=== PATIENT | female | born 2000 | race African-American/Black ===

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

== ENCOUNTER 2021-02-19 22:23 | Emergency (ER) | payer BC ==
[2021-02-19] MEDS ORDERED: Acetaminophen 500 MG Tab PO ONE (22:37)
--- NOTE | 2021-02-19 22:41 | EDM.PDOC ---
ED HPI GENERAL MEDICAL PROBLEM - General Chief Complaint: Abdominal Pain Stated Complaint: ABDOMINAL PAIN Time Seen by Provider: 02/19/21 22:30 Source of Information: Reports: Patient History Limitations: Reports: No Limitations - History of Present Illness INITIAL COMMENTS - FREE TEXT/NARRATIVE: Patient is a 20-year-old female who presents today for lower abdominal pain. Patient dates that she took a test and is now . Patient that she was at work today on the toilet urinating when she finished she had intense lower pain and could not stand. Patient denies any vaginal bleeding and or discharge. Patient denies any vomiting or diarrhea. Abdomen Pain Score (Numeric/FACES): 10 - Related Data Allergies Allergy/AdvReac Type Severity Reaction Status Date / Time shellfish derived Allergy Hives Verified 02/19/21 22:31 Home Meds: Home Meds No122/Iron/Folic Acid [ Multi Tablet] 1 each PO DAILY 02/19/21 [History] Past Medical History - Past Health History Medical/Surgical History: Denies Medical/Surgical History - Infectious Disease History Infectious Disease History: Reports: None Social & Family History - Family History Family Medical History: No Pertinent Family History ED ROS GENERAL - Review of Systems Review Of Systems: See Below Constitutional: Reports: No Symptoms HEENT: Reports: No Symptoms Respiratory: Reports: No Symptoms Cardiovascular: Reports: No Symptoms Endocrine: Reports: No Symptoms GI/Abdominal: Reports: Abdominal Pain : Reports: No Symptoms Musculoskeletal: Reports: No Symptoms Skin: Reports: No Symptoms Neurological: Reports: No Symptoms Psychiatric: Reports: No Symptoms Hematologic/Lymphatic: Reports: No Symptoms Immunologic: Reports: No Symptoms ED EXAM - Physical Exam Exam: See Below Exam Limited By: No Limitations General Appearance: Alert, WD/WN, No Apparent Distress Respiratory/Chest: No Respiratory Distress, Lungs Clear Cardiovascular: Normal Peripheral Pulses, Regular Rate, Rhythm GI/Abdominal Exam: Normal Bowel Sounds, Soft, Tender (suprapubic) Extremities: Normal Inspection Neurological: Alert, Oriented Course - Vital Signs Last Recorded V/S: Last Vital Signs Temp 98 F 02/19/21 22:25 Pulse 91 02/19/21 23:39 Resp 16 02/19/21 23:39 BP 99/60 02/19/21 23:39 Pulse Ox 100 02/19/21 23:39 - Orders/Labs/Meds Labs: Laboratory Tests 02/19/21 02/19/21 02/19/21 Range/Units 22:28 22:28 23:58 WBC 12.26 H (4.0-11.0) K/uL RBC 4.20 L (4.30-5.90) M/uL Hgb 11.4 L (12.0-16.0) g/dL Hct 34.8 L (36.0-46.0) % MCV 82.9 (80.0-98.0) fL MCH 27.1 (27.0-32.0) pg MCHC 32.8 (31.0-37.0) g/dL RDW Std Deviation 46.1 (28.0-62.0) fl RDW Coeff of Baldev 15 (11.0-15.0) % Plt Count 361 (150-400) K/uL MPV 10.60 (7.40-12.00) fL Neut % (Auto) 40.3 L (48.0-80.0) % Lymph % (Auto) 48.9 H (16.0-40.0) % [place] % (Auto) 6.3 (0.0-15.0) % Eos % (Auto) 4.2 (0.0-7.0) % Baso % (Auto) 0.3 (0.0-1.5) % Neut # (Auto) 4.9 (1.4-5.7) K/uL Lymph # (Auto) 6.0 H (0.6-2.4) K/uL [place] # (Auto) 0.8 (0.0-0.8) K/uL Eos # (Auto) 0.5 (0.0-0.7) K/uL Baso # (Auto) 0.0 (0.0-0.1) K/uL Nucleated RBC % 0.0 /100WBC Nucleated RBCs # 0 K/uL Sodium 138 (136-145) mmol/L Potassium 3.5 (3.5-5.1) mmol/L Chloride 103 (98-107) mmol/L Carbon Dioxide 23.4 (21.0-32.0) mmol/L BUN 13 (7.0-18.0) mg/dL Creatinine 0.8 (0.6-1.0) mg/dL Est Cr Clr Drug Dosing 102.05 mL/min Estimated GFR (MDRD) > 60.0 ml/min Glucose 112 H (74-106) mg/dL Calcium 8.9 (8.5-10.1) mg/dL Total Bilirubin 0.2 (0.2-1.0) mg/dL AST 18 (15-37) IU/L ALT 20 (14-63) IU/L Alkaline Phosphatase 88 (46-116) U/L Total Protein 8.0 (6.4-8.2) g/dL Albumin 4.0 (3.4-5.0) g/dL Globulin 4.0 (2.6-4.0) g/dL Albumin/Globulin Ratio 1.0 (0.9-1.6) Lipase 78 (73-393) U/L HCG, Quant 8267.0 mIU/mL Urine Color YELLOW Urine Appearance CLEAR Urine pH 7.5 (5.0-8.0) Ur Specific [place] 1.020 (1.001-1.035) Urine Protein NEGATIVE (NEGATIVE) mg/dL Urine Glucose (UA) NEGATIVE (NEGATIVE) mg/dL Urine Ketones NEGATIVE (NEGATIVE) mg/dL Urine Occult Blood NEGATIVE (NEGATIVE) Urine Nitrite NEGATIVE (NEGATIVE) Urine Bilirubin NEGATIVE (NEGATIVE) Urine Urobilinogen 1.0 (<2.0) EU/dL Ur Leukocyte Esterase NEGATIVE (NEGATIVE) Meds: Medications Discontinued Medications Generic Name Dose Route Start Last Admin Trade Name Nicq PRN Reason Stop Dose Admin Acetaminophen 650 mg 02/19/21 22:37 02/19/21 22:49 Acetaminophen 500 Mg Tab PO 02/19/21 22:38 Not Given ONETIME ONE Acetaminophen 650 mg 02/19/21 22:44 02/19/21 22:50 Acetaminophen 325 Mg Tab PO 02/19/21 22:45 650 mg NOW ONE Administration - Re-Assessments/Exams Free Text/Narrative Re-Assessment/Exam: 02/20/21 00:30 Patient's ultrasound shows IUP but still early and no cardiac motion shown po ssibly due to early but patient made aware that she will need a repeat ultrasound she already has one scheduled for February 24. Patient again has no vaginal bleeding discharge was given strict return precautions. Patient pain is improved. Departure - Departure Time of Disposition: 00:31 Disposition: Home, Self-Care 01 Condition: Good Clinical Impression: related abdominal pain of lower quadrant, antepartum - Discharge Information *PRESCRIPTION DRUG MONITORING PROGRAM REVIEWED*: Not Applicable *COPY OF PRESCRIPTION DRUG MONITORING REPORT IN PATIENT MORGAN: Not Applicable Instructions: Abdominal Pain During , [id number] Referrals: PCP,None [Primary Care Provider] - Forms: ED Department Discharge Additional Instructions: The following information is given to patients seen in the emergency department who are being discharged to home. This information is to outline your options for follow-up care. We provide all patients seen in our emergency department with a follow-up referral. The need for follow-up, as well as the timing and circumstances, are variable depending upon the specifics of your emergency department visit. If you don't have a primary care physician on staff, we will provide you with a referral. We always advise you to contact your personal physician following an emergency department visit to inform them of the circumstance of the visit and for follow-up with them and/or the need for any referrals to a consulting specialist. The emergency department will also refer you to a specialist when appropriate. This referral assures that you have the opportunity for follow-up care with a specialist. All of these measure are taken in an effort to provide you with optimal care, which includes your follow-up. Under all circumstances we always encourage you to contact your private physician who remains a resource for coordinating your care. When calling for follow-up care, please make the office aware that this follow-up is from your recent emergency room visit. If for any reason you are refused follow-up, please contact the [facility] Emergency Department at and asked to speak to the emergency department charge nurse. Please follow up with your primary care physician. If you do not have a primary care physician, see below: [facility]'s [facility] [address] [place] [id number] [facility]'s [facility] [address] [place] [id number] You are seen today for lower abdominal pain. We performed ultrasound that shows that the baby is in the right spot. Again we told you that there was no heartbeat at this moment which could possibly be due to you being early in your however we still want you to have the ultrasound in the next 7 days and also have your beta hCG redrawn. You have an appointment in the next few days and can have this done at that time. If you have any increase pasquale pain vaginal bleeding or discharge please return to the ED immediately or follow-up with your [facility]. Sepsis Event Note (ED) - Evaluation Sepsis Screening Result: No Definite Risk - Focused Exam Vital Signs: Vital Signs Temp Pulse Resp BP Pulse Ox 02/19/21 23:39 91 16 99/60 100 02/19/21 22:25 98 F 103 H 18 121/77 97 - Assessment/Plan Plan: Patient is a 20-year-old female who presents today for lower abdominal pain. Patient had a recent positive test. Will obtain labs ultrasound and reassess patient.
[2021-02-19] MEDS ORDERED: Acetaminophen 325 MG Tab PO ONE (22:44)
[2021-02-19 23:31] LABS: BLOOD UREA NITROGEN,BUN 13 mg/dL (7.0-18.0); CARBON DIOXIDE,CO2 23.4 mmol/L (21.0-32.0); CHLORIDE,CL 103 mmol/L (98-107); GLUCOSE RANDOM 112 mg/dL (74-106); LIPASE 78 U/L (73-393); POTASSIUM,K 3.5 mmol/L (3.5-5.1); SODIUM,NA 138 mmol/L (136-145)
--- NOTE | 2021-02-20 00:02 | US ---
INDICATION: , low pelvic pain TECHNIQUE: Ultrasound OB pelvis transvaginal. Real-time he-scale imaging of the pelvis was performed. COMPARISON: None FINDINGS: Sonographic imaging demonstrates a single living intrauterine gestation. Definite cardiac activity is not seen on M-mode imaging although cine loops may show cardiac activity. The embryo`s crown rump length measurement of 0.2 cm corresponds to a gestational age of 5 weeks 6 days. There is a normal appearing yolk sac. There are no gross abnormalities noted within the embryo at this early state of development. The placenta has not yet developed. There is no sign of perigestational hemorrhage. Maternal left ovary measures 3.5 x 1.4 x 2.4 centimeters. Maternal right ovary measures 4.0 x 2.8 x 4.6 centimeters. Likely right ovarian corpus luteum measuring 2.5 centimeters. Collapsing 2.6 centimeter cyst with small free fluid. IMPRESSION: 1. Single intrauterine gestation corresponding to 5 weeks 6 days. Cardiac activity is not seen on M-mode imaging although there may be some faint motion on cine loops. This is considered a of indeterminate viability. Suggest serial quantitative beta HCG and follow-up ultrasound in 7-10 days to reassess cardiac activity. 2. Maternal right ovarian corpus luteum as well as a collapsing maternal right ovarian cyst with small free fluid. Dictated by Wily Day MD @ 02/20/2021 12:01:[address] Wily Day @ Feb 20 2021 12:01AM
== END 2021-02-20 00:45 | disposition home or self-care (01) ==
LOC: MW.ED 22:23
DX: O26.891 Other specified pregnancy related conditions, first trimester (principal); R10.30 Lower abdominal pain, unspecified; Z91.013 Allergy to seafood; Z3A.01 Less than 8 weeks gestation of pregnancy
CPT/HCPCS: 36415; 76801; 80053; 81003; 83690; 84702; 85025; 99284; A9270

== ENCOUNTER 2021-03-15 10:47 | Emergency (ER) | payer BC ==
--- NOTE | 2021-03-15 11:15 | EDM.PDOC ---
ED HPI GENERAL MEDICAL PROBLEM - General Chief Complaint: GRAIN MANAGER Problem Stated Complaint: CANT KEEP ANYTHING DOWN Time Seen by Provider: 03/15/21 11:05 Source of Information: Reports: Patient History Limitations: Reports: No Limitations - History of Present Illness INITIAL COMMENTS - FREE TEXT/NARRATIVE: HISTORY AND PHYSICAL: History of present illness: The patient is a 20-year-old female who presents to the emergency room at 8 weeks 5 days with complaints of vomiting everything she eats which started yesterday. The patient reports that she had started with morning sickness about 2 weeks ago and went to her GRAIN MANAGER for a work-up. She was found to have anemia and started on an iron supplement. She was also given vitamin B6 and Unisom along with Zofran for nausea and vomiting. The patient states that she ran out of Zofran about 3 days ago and is unsure if this is why she started vomiting. Patient denies any fever, chills, headache, change in vision, syncope or near syncope. Denies any chest pain, back pain, shortness of breath or cough. Denies any abdominal pain, diarrhea, constipation or dysuria. Has not noted any blood in urine or stool. Review of systems: As per history of present illness and below otherwise all systems reviewed and negative. Past medical history: As per history of present illness and as reviewed below otherwise noncontri butory. Surgical history: As per history of present illness and as reviewed below otherwise noncontributory. Social history: See social history for further information Family history: As per history of present illness and as reviewed below otherwise noncontributory. Physical exam: General: Well developed and well nourished. Alert and orientated x 3. Nontoxic in appearance and in no acute distress. Vital signs are stable and have been reviewed by me. Nursing notes were reviewed. HEENT: Atraumatic, normocephalic, pupils equal and reactive bilaterally, negative for conjunctival pallor or scleral icterus, mucous membranes moist, TMs normal bilaterally, throat clear, neck supple, nontender, trachea midline. No drooling or trismus noted. No meningeal signs. No hot potato voice noted. Lungs: Clear to auscultation bilaterally. No wheezes, rales, or rhonchi. Chest nontender. Normal work of breathing, no accessory muscles used. Heart: S1S2, regular rate and rhythm without overt murmur, gallops, or rubs. No JVD. No peripheral edema Abdomen: Soft, nondistended, nontender. Normoactive bowel sounds. Negative for masses or costovertebral tenderness.. Skin: Intact, warm, dry. No lesions or rashes noted. Hematologic: No petechiae or purpra. Mucosa appropriate color and normal nail bed color and refill. Extremities: Atraumatic, moves all extremities per self without difficulty or deficits, negative for cords or calf pain. Neurovascular unremarkable. Neuro: Awake, alert, oriented. Cranial nerves II through XII unremarkable. Cerebellum unremarkable. Motor and sensory unremarkable throughout. Exam nonfocal. Psychiatric: Mood and affect are appropriate. Normal thought process. Answering questions appropriately. Notes: *This patient was seen and evaluated during the 2019 SARS-CoV-2 novel coronavirus pandemic period. Community viral transmission is ongoing at time of this encounter and the emergency department is operating under pandemic response procedures. As stated above the patient is a 20-year-old female who presents with vomiting associated with early . She states that she is hungry but I unable to keep food down and has run out of her Zofran. She also states that she does not take her vitamin B6 and her Unisom in conjunction but rather apart such as taking her Unisom at bedtime. I will do a general work-up including blood work, urine, and give her IV fluids with IV Zofran. The patient is agreeable with this plan. The patient was able to tolerate eating a sandwich after receiving the Zofran and IV fluids. She will get her refill of her Zofran. And she is agreeable for discharge. I have talked with the patient about today's findings, in addition to providing specific details for plan of care. Reassessment at the time of disposition demo nstrates that the patient is in no acute distress. The patient is stable for discharge, counseling was provided and we discussed in great detail signs and symptoms that would prompt them to return to the Emergency Department. Medication, follow up and supportive care measures were reviewed and discussed. Voices understanding and is agreeable to plan of care. Denies any further questions or concerns at this time. Diagnostics: CBC, CMP, UA Therapeutics: IV fluids, Zofran Impression: Nausea and vomiting Plan: 1. You were evaluated today on an emergent basis. Your complaints of vomiting during were evaluated with blood work and a urinalysis. You continue to be mildly anemic so continue your iron supplement. Of your labs were normal. You do not have a urinary tract infection. Continue to take your Zofran. Make sure to go to [facility] and get your refill. Start with easier foods that digest well. Eat small frequent meals as opposed to large greasy meals. If you have any pro blems please return to the emergency room. 2. You can alternate Tylenol and ibuprofen as needed for pain and fever management. 3. We encourage you to follow up with your primary care provider and/or recommended specialist in the next few days for re-evaluation and further care/management. 4. If your symptoms should worsen, new symptoms develop or any of the signs and symptoms we discussed should arise please return to the emergency room or call 911 (if needed). Definitive disposition and diagnosis as appropriate pending reevaluation and review of above. Abdominal Pain Score (Numeric/FACES): 4 - Related Data Allergies Allergy/AdvReac Type Severity Reaction Status Date / Time shellfish derived Allergy Hives Verified 03/15/21 11:19 Home Meds: Home Meds No122/Iron/Folic Acid [ Multi Tablet] 1 each PO DAILY 02/19/21 [History] Ondansetron [Zofran ODT] 4 mg PO ASDIRECTED 03/15/21 [History] Past Medical History - Past Health History Medical/Surgical History: Denies Medical/Surgical History HEENT History: Reports: None Cardiovascular History: Reports: None Respiratory History: Reports: None Gastrointestinal History: Reports: None Genitourinary History: Reports: None GRAIN MANAGER History: Reports: , Spontaneous , Therapeutic Musculoskeletal History: Reports: None Neurological History: Reports: None Psychiatric History: Reports: None Endocrine/Metabolic History: Reports: None Insulin Pump Model and Behavioral Pediatrician: None Hematologic History: Reports: None Immunologic History: Reports: None Oncologic (Cancer) History: Reports: None Dermatologic History: Reports: None - Infectious Disease History Infectious Disease History: Reports: None - Past Surgical History Head Surgeries/Procedures: Reports: None Social & Family History - Family History Family Medical History: No Pertinent Family History - Caffeine Use Caffeine Use: Reports: None ED ROS GENERAL - Review of Systems Review Of Systems: Comprehensive ROS is negative, except as noted in HPI. ED EXAM - Physical Exam Exam: See Below (See dictation) Course - Vital Signs Last Recorded V/S: Last Vital Signs Temp 97.8 F 03/15/21 12:44 Pulse 89 03/15/21 13:40 Resp 16 03/15/21 13:40 BP 92/47 L 03/15/21 13:40 Pulse Ox 100 03/15/21 13:40 - Orders/Labs/Meds Orders: Active Orders 24 hr Category Date Time Status Saline Lock Insert [OM.PC] Stat Oth 03/15/21 11:28 Ordered Labs: Laboratory Tests 03/15/21 03/15/21 03/15/21 Range/Units 11:32 11:32 11:32 WBC 9.58 (4.0-11.0) K/uL RBC 4.01 L (4.30-5.90) M/uL Hgb 11.1 L (12.0-16.0) g/dL Hct 33.5 L (36.0-46.0) % MCV 83.5 (80.0-98.0) fL MCH 27.7 (27.0-32.0) pg MCHC 33.1 (31.0-37.0) g/dL RDW Std Deviation 47.6 (28.0-62.0) fl RDW Coeff of Baldev 15 (11.0-15.0) % Plt Count 298 (150-400) K/uL MPV 10.50 (7.40-12.00) fL Neut % (Auto) 60.4 (48.0-80.0) % Lymph % (Auto) 28.5 (16.0-40.0) % [place] % (Auto) 6.4 (0.0-15.0) % Eos % (Auto) 4.5 (0.0-7.0) % Baso % (Auto) 0.2 (0.0-1.5) % Neut # (Auto) 5.8 H (1.4-5.7) K/uL Lymph # (Auto) 2.7 H (0.6-2.4) K/uL Hays # (Auto) 0.6 (0.0-0.8) K/uL Eos # (Auto) 0.4 (0.0-0.7) K/uL Baso # (Auto) 0.0 (0.0-0.1) K/uL Nucleated RBC % 0.0 /100WBC Nucleated RBCs # 0 K/uL Sodium 138 (136-145) mmol/L Potassium 3.5 (3.5-5.1) mmol/L Chloride 101 (98-107) mmol/L Carbon Dioxide 25.7 (21.0-32.0) mmol/L BUN 5 L (7.0-18.0) mg/dL Creatinine 0.7 (0.6-1.0) mg/dL Est Cr Clr Drug Dosing 105.52 mL/min Estimated GFR (MDRD) > 60.0 ml/min Glucose 79 (74-106) mg/dL Calcium 8.4 L (8.5-10.1) mg/dL Total Bilirubin 0.3 (0.2-1.0) mg/dL AST 15 (15-37) IU/L ALT 13 L (14-63) IU/L Alkaline Phosphatase 60 (46-116) U/L Total Protein 7.0 (6.4-8.2) g/dL Albumin 3.4 (3.4-5.0) g/dL Globulin 3.6 (2.6-4.0) g/dL Albumin/Globulin Ratio 0.9 (0.9-1.6) Urine Color YELLOW Urine Appearance CLEAR Urine pH 6.5 (5.0-8.0) Ur Specific [place] 1.025 (1.001-1.035) Urine Protein NEGATIVE (NEGATIVE) mg/dL Urine Glucose (UA) NEGATIVE (NEGATIVE) mg/dL Urine Ketones NEGATIVE (NEGATIVE) mg/dL Urine Occult Blood NEGATIVE (NEGATIVE) Urine Nitrite NEGATIVE (NEGATIVE) Urine Bilirubin NEGATIVE (NEGATIVE) Urine Urobilinogen 0.2 (<2.0) EU/dL Ur Leukocyte Esterase NEGATIVE (NEGATIVE) Meds: Medications Discontinued Medications Generic Name Dose Route Start Last Admin Trade Name Freq PRN Reason Stop Dose Admin Sodium Chloride 1,000 mls @ 999 mls/hr 03/15/21 11:28 03/15/21 11:43 Normal Saline IV 03/15/21 12:28 999 mls/hr .BOLUS ONE Administration Ondansetron HCl 4 mg 03/15/21 11:29 03/15/21 11:43 Ondansetron 4 Mg/2 Ml Sdv IVPUSH 03/15/21 11:30 4 mg ONETIME ONE Administration Sodium Chloride 10 ml 03/15/21 11:28 03/15/21 11:43 Sodium Chloride 0.9% 10 Ml Syringe FLUSH 10 ml ASDIRECTED PRN Administration Keep Vein Open Sodium Chloride 2.5 ml 03/15/21 11:28 03/15/21 11:43 Sodium Chloride 0.9% 2.5 Ml Syringe FLUSH 2.5 ml ASDIRECTED PRN Administration Keep Vein Open Departure - Departure Time of Disposition: 13:07 Disposition: Home, Self-Care 01 Condition: Good Clinical Impression: Nausea & vomiting Qualifiers: Vomiting type: unspecified Vomiting Intractability: unspecified Qualified Code(s): R11.2 - Nausea with vomiting, unspecified - Discharge Information *PRESCRIPTION DRUG MONITORING PROGRAM REVIEWED*: Not Applicable *COPY OF PRESCRIPTION DRUG MONITORING REPORT IN PATIENT MORGAN: Not Applicable Instructions: Morning Sickness, [id number] Referrals: Preston Reyes MD [Primary Care Provider] - Forms: ED Department Discharge Additional Instructions: The following information is given to patients seen in the emergency department who are being discharged to home. This information is to outline your options for follow-up care. We provide all patients seen in our emergency department with a follow-up referral. The need for follow-up, as well as the timing and circumstances, are variable depending upon the specifics of your emergency department visit. If you don't have a primary care physician on staff, we will provide you with a referral. We always advise you to contact your personal physician following an emergency department visit to inform them of the circumstance of the visit and for follow-up with them and/or the need for any referrals to a consulting specialist. The emergency department will also refer you to a specialist when appropriate. This referral assures that you have the opportunity for follow-up care with a specialist. All of these measure are taken in an effort to provide you with optimal care, which includes your follow-up. Under all circumstances we always encourage you to contact your private physician who remains a resource for coordinating your care. When calling for follow-up care, please make the office aware that this follow-up is from your recent emergency room visit. If for any reason you are refused follow-up, please contact the [facility] Emergency Department at and asked to speak to the emergency department charge nurse. [facility] [address] [place] [address] [facility] [address] [place] [address] Plan: 1. You were evaluated today on an emergent basis. Your complaints of vomiting during were evaluated with blood work and a urinalysis. You continue to be mildly anemic so continue your iron supplement. Of your labs were normal. You do not have a urinary tract infection. Continue to take your Zofran. Make sure to go to [facility] and get your refill. Start with easier foods that digest well. Eat small frequent meals as opposed to large greasy meals. If you have any problems please return to the emergency room. 2. You can alternate Tylenol and ibuprofen as needed for pain and fever management. 3. We encourage you to follow up with your primary care provider and/or recommended specialist in the next few days for re-evaluation and further care/management. 4. If your symptoms should worsen, new symptoms develop or any of the signs and symptoms we discussed should arise please return to the emergency room or call 911 (if needed). Sepsis Event Note (ED) - Focused Exam Vital Signs: Vital Signs Temp Pulse Resp BP Pulse Ox 03/15/21 13:40 89 16 92/47 L 100 03/15/21 12:44 97.8 F 90 16 99/47 L 100 03/15/21 11:21 97.6 F 66 18 104/67 99 - My Orders Last 24 Hours: My Active Orders 03/15/21 11:28 Saline Lock Insert [OM.PC] Stat - Assessment/Plan Last 24 Hours: My Active Orders 03/15/21 11:28 Saline Lock Insert [OM.PC] Stat
[2021-03-15] MEDS ORDERED: Sodium Chloride 0.9% 2.5 ML Syringe FLUSH PRN (11:28)
[2021-03-15] MEDS ORDERED: Sodium Chloride 0.9% 10 ML Syringe FLUSH PRN (11:28)
[2021-03-15] MEDS ORDERED: Sodium Chloride 0.9% 1,000 ML IV ONE (11:28)
[2021-03-15] MEDS ORDERED: Ondansetron 4 MG/2 ML SDV IVPUSH ONE (11:29)
[2021-03-15 12:03] LABS: BLOOD UREA NITROGEN,BUN 5 mg/dL (7.0-18.0); CARBON DIOXIDE,CO2 25.7 mmol/L (21.0-32.0); CHLORIDE,CL 101 mmol/L (98-107); GLUCOSE RANDOM 79 mg/dL (74-106); POTASSIUM,K 3.5 mmol/L (3.5-5.1); SODIUM,NA 138 mmol/L (136-145)
== END 2021-03-15 13:41 | disposition home or self-care (01) ==
LOC: MW.ED 10:47
DX: O21.9 Vomiting of pregnancy, unspecified (principal); Z3A.08 8 weeks gestation of pregnancy; Z91.013 Allergy to seafood
CPT/HCPCS: 36415; 80053; 81003; 85025; 96374; 99284; J2405; J7030; 99283

== ENCOUNTER 2021-04-25 19:26 | Emergency (ER) | payer BC ==
[2021-04-25] MEDS ORDERED: Lactated Ringers 1,000 ML IV ONE ×2 (19:53→19:54)
[2021-04-25] MEDS ORDERED: Ondansetron 4 MG/2 ML SDV IVPUSH ONE (19:53)
--- NOTE | 2021-04-25 19:56 | EDM.PDOC ---
ED HPI GENERAL MEDICAL PROBLEM - General Chief Complaint: Gastrointestinal Problem Stated Complaint: VOMITING ALMOST 15 WEEK E Time Seen by Provider: 04/25/21 19:44 Source of Information: Reports: Patient - History of Present Illness INITIAL COMMENTS - FREE TEXT/NARRATIVE: 20-year-old female 14 weeks presents complaining of nausea vomiting. Patient had bad hyperemesis early in it got slightly better and then got really bad again about a week ago. Patient is spoken to her FUSION OPERATOR doctor but she really did not get any answers. No fevers. There is no diarrhea. No sick contacts. No cough or productive sputum or infectious contacts. No exacerbating or alleviating factors. Abdomen Pain Score (Numeric/FACES): 10 - Related Data Allergies Allergy/AdvReac Type Severity Reaction Status Date / Time shellfish derived Allergy Hives Verified 04/25/21 19:44 Home Meds: Home Meds No122/Iron/Folic Acid [ Multi Tablet] 1 each PO DAILY 02/19/21 [History] Ondansetron [Zofran ODT] 4 mg PO ASDIRECTED 03/15/21 [History] Ondansetron [Zofran ODT] 4 mg PO Q6H PRN #24 tab.dis 04/25/21 [Rx] Past Medical History - Past Health History Medical/Surgical History: Denies Medical/Surgical History HEENT History: Reports: None Cardiovascular History: Reports: None Respiratory History: Reports: None Gastrointestinal History: Reports: None Genitourinary History: Reports: None FUSION OPERATOR History: Reports: , Spontaneous , Therapeutic Musculoskeletal History: Reports: None Neurological History: Reports: None Psychiatric History: Reports: None Endocrine/Metabolic History: Reports: None Insulin Pump Model and Valuation Manager: None Hematologic History: Reports: Anemia Immunologic History: Reports: None Oncologic (Cancer) History: Reports: None Dermatologic History: Reports: None - Infectious Disease History Infectious Disease History: Reports: None - Past Surgical History Head Surgeries/Procedures: Reports: None Social & Family History - Family History Family Medical History: No Pertinent Family History - Caffeine Use Caffeine Use: Reports: None - Recreational Drug Use Recreational Drug Use: No ED ROS GENERAL - Review of Systems Review Of Systems: Comprehensive ROS is negative, except as noted in HPI. Constitutional: Denies: Fever Respiratory: Denies: Shortness of Breath, Cough Cardiovascular: Denies: Chest Pain GI/Abdominal: Reports: Abdominal Pain, Vomiting : Denies: Dysuria Skin: Denies: Rash ED EXAM, GENERAL - Physical Exam Exam: See Below Free Text/Narrative:: CONSTITUTIONAL: well appearing in no acute distress SKIN: dry, and intact without rash HENT: Normocephalic, atraumatic, NECK: normal range of motion PULMONARY: normal chest rise and fall, no respiratory distress or stridor NEUROLOGIC: normal speech, moves all extremities, grossly non-focal GI: No abdominal objective tenderness. No rebound or rigidity MUSCULOSKELETAL: no gross deformities, atraumatic PSYCHIATRIC: normal mood and affect Course - Vital Signs Text/Narrative:: Hyperemesis gravidarum, acute cholecystitis, pancreatitis, kidney stone, pyelonephritis, other Patient presents with vomiting in . Patient given Zofran and IV fluids with significant improvement. Patient's lipase was above the upper limits of normal. Bedside ultrasound showed no gallbladder wall thickening or stones or pericholecystic fluid. Patient denies alcohol use. There is no tenderness specific in the epigastrium to suggest pancreatitis. The remainder of the work- up is unremarkable. Patient will be sent home on Zofran and encouraged to restart pyridoxine and doxylamine. Supportive treat with return precautions and FUSION OPERATOR follow-up discussed Last Recorded V/S: Last Vital Signs Temp 36.1 C 04/25/21 19:35 Pulse 87 04/25/21 19:35 Resp 18 04/25/21 19:35 BP 118/78 04/25/21 19:35 Pulse Ox 97 04/25/21 19:35 - Orders/Labs/Meds Labs: Laboratory Tests 04/25/21 04/25/21 Range/Units 19:40 19:40 WBC 14.22 H (4.0-11.0) K/uL RBC 4.02 L (4.30-5.90) M/uL Hgb 10.9 L (12.0-16.0) g/dL Hct 32.8 L (36.0-46.0) % MCV 81.6 (80.0-98.0) fL MCH 27.1 (27.0-32.0) pg MCHC 33.2 (31.0-37.0) g/dL RDW Std Deviation 44.1 (28.0-62.0) fl RDW Coeff of Baldev 15 (11.0-15.0) % Plt Count 361 (150-400) K/uL MPV 11.10 (7.40-12.00) fL Neut % (Auto) 77.6 (48.0-80.0) % Lymph % (Auto) 16.5 (16.0-40.0) % [place] % (Auto) 4.8 (0.0-15.0) % Eos % (Auto) 1.0 (0.0-7.0) % Baso % (Auto) 0.1 (0.0-1.5) % Neut # (Auto) 11.0 H (1.4-5.7) K/uL Lymph # (Auto) 2.3 (0.6-2.4) K/uL [place] # (Auto) 0.7 (0.0-0.8) K/uL Eos # (Auto) 0.1 (0.0-0.7) K/uL Baso # (Auto) 0.0 (0.0-0.1) K/uL Nucleated RBC % 0.0 /100WBC Nucleated RBCs # 0 K/uL Sodium 138 (136-145) mmol/L Potassium 3.5 (3.5-5.1) mmol/L Chloride 102 (98-107) mmol/L Carbon Dioxide 27.2 (21.0-32.0) mmol/L BUN 8 (7.0-18.0) mg/dL Creatinine 0.7 (0.6-1.0) mg/dL Est Cr Clr Drug Dosing 118.48 mL/min Estimated GFR (MDRD) > 60.0 ml/min Glucose 92 (74-106) mg/dL Calcium 8.9 (8.5-10.1) mg/dL Total Bilirubin 0.2 (0.2-1.0) mg/dL AST 18 (15-37) IU/L ALT 19 (14-63) IU/L Alkaline Phosphatase 57 (46-116) U/L Total Protein 7.3 (6.4-8.2) g/dL Albumin 3.6 (3.4-5.0) g/dL Globulin 3.7 (2.6-4.0) g/dL Albumin/Globulin Ratio 1.0 (0.9-1.6) Lipase 419 H (73-393) U/L Meds: Medications Discontinued Medications Generic Name Dose Route Start Last Admin Trade Name Freq PRN Reason Stop Dose Admin Lactated Ringer's 1,000 mls @ 999 mls/hr 04/25/21 19:53 04/25/21 20:01 Ringers, Lactated IV 04/25/21 20:53 999 mls/hr .BOLUS ONE Administration Lactated Ringer's 1,000 mls @ 999 mls/hr 04/25/21 19:54 04/25/21 20:01 Ringers, Lactated IV 04/25/21 20:54 999 mls/hr .BOLUS ONE Administration Ondansetron HCl 4 mg 04/25/21 19:53 04/25/21 20:01 Ondansetron 4 Mg/2 Ml Sdv IVPUSH 04/25/21 19:54 4 mg ONETIME ONE Administration Departure - Departure Time of Disposition: 21:24 Disposition: Home, Self-Care 01 Condition: Good Clinical Impression: Nausea & vomiting Qualifiers: Vomiting type: unspecified Vomiting Intractability: unspecified Qualified Code(s): R11.2 - Nausea with vomiting, unspecified Qualifiers: Weeks of gestation: 9 weeks Qualified Code(s): Z3A.09 - 9 weeks gestation of - Discharge Information Prescriptions: Ondansetron [Zofran ODT] 4 mg PO Q6H PRN #24 tab.dis PRN Reason: Nausea Instructions: Hyperemesis Gravidarum Referrals: Preston Reyes MD [Primary Care Provider] - Forms: ED Department Discharge Additional Instructions: Return for fevers, increasing abdominal pain, if you are unable to keep fluids down. Take Kerwin as prescribed in addition to vitamin B and Unisom as discussed. Your lipase level today it was 419. Please have this rechecked in 2 days and be reevaluated in 2 days to ensure that this is nothing to be concerned about. Sepsis Event Note (ED) - Evaluation Sepsis Screening Result: No Definite Risk - Focused Exam Vital Signs: Vital Signs Temp Pulse Resp BP Pulse Ox 04/25/21 19:35 36.1 C 87 18 118/78 97
[2021-04-25 20:11] LABS: BLOOD UREA NITROGEN,BUN 8 mg/dL (7.0-18.0); CARBON DIOXIDE,CO2 27.2 mmol/L (21.0-32.0); CHLORIDE,CL 102 mmol/L (98-107); GLUCOSE RANDOM 92 mg/dL (74-106); LIPASE 419 U/L (73-393); POTASSIUM,K 3.5 mmol/L (3.5-5.1); SODIUM,NA 138 mmol/L (136-145)
== END 2021-04-25 21:27 | disposition home or self-care (01) ==
LOC: MW.ED 19:26
DX: O21.9 Vomiting of pregnancy, unspecified (principal); Z91.013 Allergy to seafood; Z3A.09 9 weeks gestation of pregnancy
CPT/HCPCS: 36415; 80053; 83690; 85025; 96374; 99284; J2405; J7120

== ENCOUNTER 2022-10-10 13:44 | Emergency (ER) | payer BC ==
[2022-10-10] MEDS ORDERED: Sodium Chloride 0.9% 1,000 ML IV STA ×2 (14:17→15:50)
[2022-10-10] MEDS ORDERED: Metoclopramide 10 MG/2 ML SDV IVPUSH STA (14:18)
[2022-10-10 14:38] LABS: CARBON DIOXIDE,CO2 25.8 mmol/L (21.0-32.0); POTASSIUM,K 3.6 mmol/L (3.5-5.1)
[2022-10-10] MEDS ORDERED: Ondansetron 4 MG/2 ML SDV IVPUSH STA (14:38)
[2022-10-10 15:41] LABS: CORONAVIRUS COVID-19 NAA NEGATIVE (NEGATIVE); INFLUENZA A NAA NEGATIVE (NEGATIVE); INFLUENZA B NAA NEGATIVE (NEGATIVE)
== END 2022-10-10 17:02 | disposition home or self-care (01) ==
LOC: MW.ED 13:44
DX: O21.9 Vomiting of pregnancy, unspecified (principal); O99.891 Other specified diseases and conditions complicating pregnancy; R10.30 Lower abdominal pain, unspecified; Z91.013 Allergy to seafood; Z20.822 Contact with and (suspected) exposure to COVID-19; Z3A.01 Less than 8 weeks gestation of pregnancy
CPT/HCPCS: 0240U; 36415; 76817; 80053; 81003; 84702; 85025; 96361; 96374; 96375; 99284; J2405; J2765; J7030

== ENCOUNTER 2022-10-25 21:45 | Emergency (ER) | payer BC ==
[2022-10-25] MEDS ORDERED: Dextrose 5%-Lactated Ringers 1,000 ML IV STA (22:24)
[2022-10-25] MEDS ORDERED: Ondansetron 4 MG/2 ML SDV IVPUSH ONE (22:24)
[2022-10-25 23:38] LABS: CARBON DIOXIDE,CO2 26.7 mmol/L (21.0-32.0); POTASSIUM,K 3.7 mmol/L (3.5-5.1)
[2022-10-25] MEDS ORDERED: Ketorolac 30 MG/ML SDV IVPUSH ONE (23:50)
[2022-10-25] MEDS ORDERED: Misoprostol 200 MCG Tab VAG STA (23:57)
[2022-10-26] MEDS ORDERED: Acetaminophen/HYDROcodone 325-5 MG Tab PO ONE (00:29)
== END 2022-10-26 00:34 | disposition home or self-care (01) ==
LOC: MW.ED 21:45
DX: O02.1 Missed abortion (principal); Z91.013 Allergy to seafood
CPT/HCPCS: 36415; 76817; 80053; 81001; 81025; 84702; 85025; 86850; 86900; 86901; 96361; 96374; 96375; 99284; A9270; J1885; J2405; J7121

== ENCOUNTER 2023-02-07 10:03 | Day surgery (SDC) | payer BC ==
[~2023-02-07 10:03] MED LIST: Doxycycline 200 MG in Dextrose 5% in Water 250 ML IV SCH; Lactated Ringers 1,000 ML IV SCH; Propofol 200 MG/20 ML SDV ONE; fentaNYL 100 MCG/2 ML SDV ONE; propofoL 50 ML ONE
[2023-02-07 10:38] LABS: HEMOGLOBIN 12.6 g/dL (12.0-16.0); MEAN CORPUSCULAR HEMOGLOBIN 27.9 pg (27.0-32.0); MEAN CORPUSCULAR HGB CONC 32.3 g/dL (31.0-37.0); MEAN CORPUSCULAR VOLUME 86.5 fL (80.0-98.0); RED BLOOD CELL COUNT 4.51 M/uL (4.30-5.90); WHITE BLOOD CELL COUNT,WBC 6.83 K/uL (4.0-11.0)
[2023-02-07 11:09] LABS: A/G RATIO 1.2 (0.9-1.6); ALBUMIN 3.8 g/dL (3.4-5.0); BILIRUBIN TOTAL 0.5 mg/dL (0.2-1.0); CARBON DIOXIDE,CO2 29.5 mmol/L (21.0-32.0); CREATININE 0.9 mg/dL (0.6-1.0); EST CRCL DRUG DOSING (CG) 82.84 mL/min; POTASSIUM,K 4.1 mmol/L (3.5-5.1); PROTEIN TOTAL,TP 7.1 g/dL (6.4-8.2)
[2023-02-07] MEDS ORDERED: Acetaminophen/oxyCODONE 325-5 MG Tab PO PRN (11:31)
[2023-02-07] MEDS ORDERED: Ketorolac 30 MG/ML SDV IVPUSH ONE (11:31)
[2023-02-07] MEDS ORDERED: Ketorolac 30 MG/ML SDV ONE (11:43)
[2023-02-07] MEDS ORDERED: Ondansetron 4 MG/2 ML SDV ONE (11:43)
[2023-02-07] MEDS ORDERED: Dexamethasone 4 MG/ML 5 ML MDV ONE (11:43)
== END 2023-02-07 12:38 | disposition home or self-care (01) ==
LOC: MW.SDS 10:03
PROVIDERS: ATTEND Obstetrics & Gynecology
DX: O03.39 Incomplete spontaneous abortion with other complications (principal); O73.1 Retained portions of placenta and membranes, without hemorrhage; Z79.899 Other long term (current) drug therapy
CPT/HCPCS: 36415; 59812; 80053; 85027; J0131; J1100; J1885; J2405; J2704; J3010; J3490; J7060; J7120; 01965

== ENCOUNTER 2024-01-24 08:05 | Emergency (ER) | payer SELFPAY ==
[2024-01-24] MEDS: Alum Hydro/Mag Hydro/Simeth XS 15 ML, Lidocaine 2% 5 ML PO ONE (08:40)
[2024-01-24 08:41] LABS: BASOPHILS ABSOLUTE AUTO 0.05 K/uL (0.00-0.20); BASOPHILS PERCENT AUTO 0.5 % (0.0-1.0); EOSINOPHILS ABSOLUTE AUTO 0.61 K/uL (0.00-0.45); EOSINOPHILS PERCENT AUTO 6.7 % (0.0-6.0); HEMATOCRIT 37.1 % (37.0-47.0); HEMOGLOBIN 12.1 g/dL (12.0-16.0); IMMATURE GRAN ABSOLUTE AUTO 0.02 K/uL (0.00-0.05); IMMATURE GRAN PERCENT AUTO 0.2 % (0.0-0.4); LYMPHOCYTES ABSOLUTE AUTO 3.89 K/uL (1.00-4.80); LYMPHOCYTES PERCENT AUTO 42.7 % (24.0-44.0); MEAN CORPUSCULAR HEMOGLOBIN 28.6 pg (28.0-32.0); MEAN CORPUSCULAR HGB CONC 32.6 g/dL (32.0-36.0); MEAN CORPUSCULAR VOLUME 87.7 fL (83.0-99.0); MEAN PLATELET VOLUME 10.6 fL (9.4-12.3); MONOCYTES ABSOLUTE AUTO 0.59 K/uL (0.00-0.80); MONOCYTES PERCENT AUTO 6.5 % (0.0-8.0); NEUTROPHILS ABSOLUTE AUTO 3.96 K/uL (1.80-7.70); NEUTROPHILS PERCENT AUTO 43.4 % (41.0-71.0); PLATELET COUNT,PLT 249 K/uL (150-400); RED BLOOD CELL COUNT 4.23 M/uL (4.10-5.30); WHITE BLOOD CELL COUNT,WBC 9.12 K/uL (3.9-11.3)
[2024-01-24] MEDS: Sodium Chloride 0.9% 10 ML Syringe FLUSH PRN (08:41)
[2024-01-24] MEDS: Famotidine 20 MG/2 ML SDV IVPUSH ONE (08:41)
[2024-01-24] MEDS: fentaNYL 50 MCG/ML SDV IV ONE (08:41)
[2024-01-24] MEDS: Sodium Chloride 0.9% 2.5 ML Syringe FLUSH PRN (08:41)
[2024-01-24] MEDS: Ondansetron 4 MG/2 ML SDV IVPUSH ONE (08:41)
[2024-01-24 08:54] LABS: INR 1.1 (0.86-1.11)
[2024-01-24 09:40] LABS: ALANINE AMINOTRANSFERASE,ALT 45 IU/L (14-63); ALBUMIN 3.7 g/dL (3.4-5.0); ALKALINE PHOSPHATASE 77 U/L (46-116); ASPARTATE AMNIOTRANSFERASE,AST 29 IU/L (15-37); BILIRUBIN TOTAL 0.1 mg/dL (0.2-1.0); BLOOD UREA NITROGEN,BUN 10 mg/dL (7.0-18.0); CALCIUM 9.1 mg/dL (8.5-10.1); CARBON DIOXIDE,CO2 24.7 mmol/L (21.0-32.0); CHLORIDE,CL 107 mmol/L (98-107); CREATININE 0.7 mg/dL (0.6-1.0); GLUCOSE RANDOM 91 mg/dL (74-106); POTASSIUM,K 4.3 mmol/L (3.5-5.1); PROTEIN TOTAL,TP 7.3 g/dL (6.4-8.2); SODIUM,NA 142 mmol/L (136-145)
[2024-01-24 09:42] LABS: ESTIMATED GFR 125 mL/min (>60)
== END 2024-01-24 10:13 | disposition home or self-care (01) ==
LOC: MW.ED 08:05
DX: R07.9 Chest pain, unspecified (principal); Z75.8 Other problems related to medical facilities and other health care; Z91.013 Allergy to seafood; Z79.899 Other long term (current) drug therapy
CPT/HCPCS: 36415; 71045; 80053; 84484; 84703; 85025; 85610; 85730; 93005; 96374; 96375; 99285; A9270; J2405; J3010; J3490; 93010; 99284

== ENCOUNTER 2024-10-20 20:31 | Emergency (ER) | payer SELFPAY ==
[2024-10-20] MEDS: Acetaminophen/HYDROcodone 325-5 MG Tab PO ONE (23:16)
== END 2024-10-20 23:44 | disposition home or self-care (01) ==
LOC: MW.ED 20:31
DX: S43.402A Unspecified sprain of left shoulder joint, initial encounter (principal); Z79.899 Other long term (current) drug therapy; Z91.013 Allergy to seafood; X58.XXXA Exposure to other specified factors, initial encounter
CPT/HCPCS: 73030; 99283; A9270

== ENCOUNTER 2024-11-07 09:51 | Emergency (ER) | payer SELFPAY ==
[2024-11-07 10:49] LABS: BASOPHILS ABSOLUTE AUTO 0.04 K/uL (0.00-0.20); BASOPHILS PERCENT AUTO 0.6 % (0.0-1.0); EOSINOPHILS ABSOLUTE AUTO 0.41 K/uL (0.00-0.45); EOSINOPHILS PERCENT AUTO 5.8 % (0.0-6.0); HEMATOCRIT 34.6 % (37.0-47.0); HEMOGLOBIN 11.5 g/dL (12.0-16.0); IMMATURE GRAN ABSOLUTE AUTO 0.02 K/uL (0.00-0.05); IMMATURE GRAN PERCENT AUTO 0.3 % (0.0-0.4); LYMPHOCYTES ABSOLUTE AUTO 2.63 K/uL (1.00-4.80); LYMPHOCYTES PERCENT AUTO 37.5 % (24.0-44.0); MEAN CORPUSCULAR HGB CONC 33.2 g/dL (32.0-36.0); MEAN CORPUSCULAR VOLUME 84.2 fL (83.0-99.0); MONOCYTES ABSOLUTE AUTO 0.47 K/uL (0.00-0.80); MONOCYTES PERCENT AUTO 6.7 % (0.0-8.0); NEUTROPHILS ABSOLUTE AUTO 3.45 K/uL (1.80-7.70); NEUTROPHILS PERCENT AUTO 49.1 % (41.0-71.0); PLATELET COUNT,PLT 246 K/uL (150-400); RED BLOOD CELL COUNT 4.11 M/uL (4.10-5.30); WHITE BLOOD CELL COUNT,WBC 7.02 K/uL (3.9-11.3)
[2024-11-07 10:55] LABS: APPEARANCE,URINE CLEAR; BILIRUBIN,URINE NEGATIVE (NEGATIVE); COLOR,URINE YELLOW; GLUCOSE,URINE NEGATIVE (NEGATIVE); KETONES,URINE NEGATIVE (NEGATIVE); LEUKOCYTE ESTERASE,URINE NEGATIVE (NEGATIVE); NITRITE,URINE NEGATIVE (NEGATIVE); OCCULT BLOOD,URINE SMALL (NEGATIVE); PROTEIN,URINE NEGATIVE (NEGATIVE); UROBILINOGEN,URINE 0.2 EU/dL (<2.0)
[2024-11-07 11:32] LABS: SQUAMOUS EPITHELIAL CELLS,UR FEW; WBC,URINE 0-2 (0-5/HPF)
[2024-11-07 11:33] LABS: BACTERIA,URINE FEW (NEGATIVE); MUCUS,URINE LIGHT (NONE-MOD)
[2024-11-07 11:46] LABS: ALBUMIN 3.6 g/dL (3.4-5.0); BILIRUBIN TOTAL 0.2 mg/dL (0.2-1.0); CALCIUM 8.7 mg/dL (8.5-10.1); CARBON DIOXIDE,CO2 23.6 mmol/L (21.0-32.0); CREATININE 0.7 mg/dL (0.6-1.0); EST CRCL DRUG DOSING (CG) 103.59 mL/min; POTASSIUM,K 3.7 mmol/L (3.5-5.1); PROTEIN TOTAL,TP 7.2 g/dL (6.4-8.2)
== END 2024-11-07 12:32 | disposition home or self-care (01) ==
LOC: MW.ED 09:51
DX: O20.0 Threatened abortion (principal); O99.331 Smoking (tobacco) complicating pregnancy, first trimester; F17.210 Nicotine dependence, cigarettes, uncomplicated; Z91.013 Allergy to seafood; Z3A.01 Less than 8 weeks gestation of pregnancy
CPT/HCPCS: 36415; 76817; 76817-26; 80053; 81001; 84702; 85025; 86900; 86901; 99284

== ENCOUNTER 2024-12-02 00:44 | Emergency (ER) | payer BC ==
[2024-12-02] MEDS: Metoclopramide 10 MG/2 ML SDV IVPUSH ONE ×2 (01:01→03:01)
[2024-12-02] MEDS: Sodium Chloride 0.9% 1,000 ML IV ONE (01:13)
[2024-12-02 01:28] LABS: BASOPHILS ABSOLUTE AUTO 0.04 K/uL (0.00-0.20); BASOPHILS PERCENT AUTO 0.3 % (0.0-1.0); EOSINOPHILS ABSOLUTE AUTO 0.08 K/uL (0.00-0.45); EOSINOPHILS PERCENT AUTO 0.6 % (0.0-6.0); HEMATOCRIT 36.4 % (37.0-47.0); HEMOGLOBIN 12.4 g/dL (12.0-16.0); IMMATURE GRAN ABSOLUTE AUTO 0.04 K/uL (0.00-0.05); IMMATURE GRAN PERCENT AUTO 0.3 % (0.0-0.4); LYMPHOCYTES ABSOLUTE AUTO 3.94 K/uL (1.00-4.80); LYMPHOCYTES PERCENT AUTO 29.5 % (24.0-44.0); MEAN CORPUSCULAR HEMOGLOBIN 28.1 pg (28.0-32.0); MEAN CORPUSCULAR HGB CONC 34.1 g/dL (32.0-36.0); MEAN CORPUSCULAR VOLUME 82.4 fL (83.0-99.0); MEAN PLATELET VOLUME 10.2 fL (9.4-12.3); MONOCYTES ABSOLUTE AUTO 0.58 K/uL (0.00-0.80); MONOCYTES PERCENT AUTO 4.3 % (0.0-8.0); NEUTROPHILS ABSOLUTE AUTO 8.66 K/uL (1.80-7.70); PLATELET COUNT,PLT 295 K/uL (150-400); RED BLOOD CELL COUNT 4.42 M/uL (4.10-5.30); WHITE BLOOD CELL COUNT,WBC 13.34 K/uL (3.9-11.3)
[2024-12-02 01:32] LABS: A/G RATIO 1.1 (0.9-1.6); BILIRUBIN TOTAL 0.6 mg/dL (0.2-1.0); CALCIUM 9.4 mg/dL (8.5-10.1); CARBON DIOXIDE,CO2 21.5 mmol/L (21.0-32.0); CREATININE 0.8 mg/dL (0.6-1.0); EST CRCL DRUG DOSING (CG) 89.28 mL/min; POTASSIUM,K 3.6 mmol/L (3.5-5.1); PROTEIN TOTAL,TP 7.8 g/dL (6.4-8.2)
[2024-12-02] MEDS: Metoclopramide 10 MG/2 ML SDV IM ONE (01:55)
[2024-12-02] MEDS: Lactated Ringers 1,000 ML IV SCH (01:55)
[2024-12-02 04:30] LABS: APPEARANCE,URINE SLT CLOUDY; BILIRUBIN,URINE NEGATIVE (NEGATIVE); COLOR,URINE YELLOW; GLUCOSE,URINE NEGATIVE (NEGATIVE); KETONES,URINE 15 mg/dL (NEGATIVE); LEUKOCYTE ESTERASE,URINE NEGATIVE (NEGATIVE); NITRITE,URINE NEGATIVE (NEGATIVE); OCCULT BLOOD,URINE NEGATIVE (NEGATIVE); PH,URINE 7.5 (5.0-8.0); PROTEIN,URINE 30 mg/dL (NEGATIVE)
[2024-12-02 04:37] LABS: AMORPHOUS SEDIMENT,URINE HEAVY (NEGATIVE); BACTERIA,URINE FEW (NEGATIVE); MUCUS,URINE MODERATE (NONE-MOD); RBC,URINE 0-2 (0-2/HPF); SQUAMOUS EPITHELIAL CELLS,UR FEW; WBC,URINE 0-2 (0-5/HPF)
== END 2024-12-02 05:21 | disposition home or self-care (01) ==
LOC: MW.ED 00:44
DX: O99.281 Endocrine, nutritional and metabolic diseases complicating pregnancy, first trimester (principal); E86.0 Dehydration; O21.9 Vomiting of pregnancy, unspecified; Z91.013 Allergy to seafood; Z87.891 Personal history of nicotine dependence; Z3A.08 8 weeks gestation of pregnancy
CPT/HCPCS: 36415; 71045; 80053; 81001; 85025; 96361; 96374; 96376; 99284; J2765; J7030; J7120

== ENCOUNTER 2024-12-02 21:54 | Emergency (ER) | payer BC ==
[2024-12-02] MEDS ORDERED: Sodium Chloride 0.9% 2.5 ML Syringe FLUSH PRN (23:12)
[2024-12-02] MEDS ORDERED: Sodium Chloride 0.9% 20 ML SDV IV PRN (23:12)
[2024-12-02] MEDS ORDERED: Sodium Chloride 0.9% 10 ML Syringe FLUSH PRN (23:12)
[2024-12-02 23:17] LABS: BASOPHILS ABSOLUTE AUTO 0.02 K/uL (0.00-0.20); BASOPHILS PERCENT AUTO 0.2 % (0.0-1.0); EOSINOPHILS ABSOLUTE AUTO 0.05 K/uL (0.00-0.45); EOSINOPHILS PERCENT AUTO 0.4 % (0.0-6.0); HEMATOCRIT 32.6 % (37.0-47.0); HEMOGLOBIN 11.2 g/dL (12.0-16.0); IMMATURE GRAN ABSOLUTE AUTO 0.04 K/uL (0.00-0.05); IMMATURE GRAN PERCENT AUTO 0.3 % (0.0-0.4); LYMPHOCYTES ABSOLUTE AUTO 2.33 K/uL (1.00-4.80); LYMPHOCYTES PERCENT AUTO 19.3 % (24.0-44.0); MEAN CORPUSCULAR HEMOGLOBIN 28.4 pg (28.0-32.0); MEAN CORPUSCULAR HGB CONC 34.4 g/dL (32.0-36.0); MEAN CORPUSCULAR VOLUME 82.5 fL (83.0-99.0); MEAN PLATELET VOLUME 11.3 fL (9.4-12.3); NEUTROPHILS ABSOLUTE AUTO 9.01 K/uL (1.80-7.70); NEUTROPHILS PERCENT AUTO 74.8 % (41.0-71.0); PLATELET COUNT,PLT 249 K/uL (150-400); RED BLOOD CELL COUNT 3.95 M/uL (4.10-5.30); WHITE BLOOD CELL COUNT,WBC 12.05 K/uL (3.9-11.3)
[2024-12-02] MEDS: Sodium Chloride 0.9% 1,000 ML IV ONE (23:21)
[2024-12-02] MEDS: Metoclopramide 10 MG/2 ML SDV IV ONE (23:21)
[2024-12-02 23:36] LABS: A/G RATIO 1.1 (0.9-1.6); ALANINE AMINOTRANSFERASE,ALT 16 IU/L (14-63); ALBUMIN 3.8 g/dL (3.4-5.0); ALKALINE PHOSPHATASE 57 U/L (46-116); ASPARTATE AMNIOTRANSFERASE,AST 12 IU/L (15-37); BILIRUBIN TOTAL 0.7 mg/dL (0.2-1.0); BLOOD UREA NITROGEN,BUN 4 mg/dL (7.0-18.0); CARBON DIOXIDE,CO2 19.3 mmol/L (21.0-32.0); CHLORIDE,CL 99 mmol/L (98-107); CREATININE 0.7 mg/dL (0.6-1.0); EST CRCL DRUG DOSING (CG) 101.62 mL/min; ESTIMATED GFR 125 mL/min (>60); GLUCOSE RANDOM 97 mg/dL (74-106); LIPASE 14 U/L (16-77); MAGNESIUM 1.7 mg/dL (1.8-2.4); POTASSIUM,K 3.3 mmol/L (3.5-5.1); PRO B-TYPE NATRIUR PEPT,BNPPRO 83 pg/mL (0-125); PROTEIN TOTAL,TP 7.3 g/dL (6.4-8.2); SODIUM,NA 136 mmol/L (136-145)
[2024-12-03 01:14] LABS: APPEARANCE,URINE SLT CLOUDY; BILIRUBIN,URINE NEGATIVE (NEGATIVE); COLOR,URINE YELLOW; GLUCOSE,URINE NEGATIVE (NEGATIVE); KETONES,URINE >=80 mg/dL (NEGATIVE); LEUKOCYTE ESTERASE,URINE NEGATIVE (NEGATIVE); NITRITE,URINE NEGATIVE (NEGATIVE); OCCULT BLOOD,URINE NEGATIVE (NEGATIVE); PH,URINE 7.5 (5.0-8.0); PROTEIN,URINE NEGATIVE (NEGATIVE)
[2024-12-03] MEDS: Alum Hydrox/Mag Hydrox/Simeth 15 ML, Lidocaine 2% 5 ML PO ONE (01:15)
[2024-12-03] MEDS: Potassium Chloride 20 MEQ Tab.ER PO ONE (01:15)
[2024-12-03] MEDS: Metoclopramide 10 MG/2 ML SDV IM ONE (01:27)
[2024-12-03 01:34] LABS: RBC,URINE 0-1 (0-2/HPF)
[2024-12-03 01:35] LABS: AMORPHOUS SEDIMENT,URINE HEAVY (NEGATIVE); BACTERIA,URINE 1+ (NEGATIVE); EPITHELIAL CELLS,URINE FEW (NONE-FEW); MUCUS,URINE HEAVY (NONE-MOD); WBC,URINE 0-5 (0-5/HPF)
== END 2024-12-03 01:49 | disposition home or self-care (01) ==
LOC: MW.ED 21:54
DX: O21.9 Vomiting of pregnancy, unspecified (principal); Z91.013 Allergy to seafood; Z79.899 Other long term (current) drug therapy; Z3A.09 9 weeks gestation of pregnancy
CPT/HCPCS: 36415; 76817; 80053; 81001; 83605; 83690; 83735; 83880; 84484; 84702; 85025; 93005; 96361; 96374; 99285; A9270; J2765; J7030

== ENCOUNTER 2024-12-11 08:02 | Day surgery (SDC) | payer BC ==
[~2024-12-11 08:02] MED LIST changes: +Albuterol 0.083% 2.5 MG/3 ML Neb Soln NEB PRN; -Doxycycline 200 MG in Dextrose 5% in Water 250 ML IV SCH; +HYDROmorphone 1 MG/ML Syringe IVPUSH PRN; -Lactated Ringers 1,000 ML IV SCH; +Metoclopramide 10 MG/2 ML SDV IVPUSH PRN; +Morphine 2 MG/ML SYRINGE IVPUSH PRN; +Naloxone 0.4 MG/ML SDV IVPUSH PRN; +Ondansetron 4 MG/2 ML SDV IVPUSH PRN; +Phenylephrine HCl In 0.9% NaCl 1 MG/10 ML Syringe IVPUSH PRN; -Propofol 200 MG/20 ML SDV ONE; -fentaNYL 100 MCG/2 ML SDV ONE; +fentaNYL 50 MCG/ML SDV IVPUSH PRN; -propofoL 50 ML ONE
[2024-12-11] MEDS: Lactated Ringers 1,000 ML IV SCH (08:30)
[2024-12-11] MEDS ORDERED: Midazolam 1 MG/ML 2 ML SDV ONE (08:57)
[2024-12-11] MEDS ORDERED: fentaNYL 100 MCG/2 ML SDV ONE (08:57)
[2024-12-11] MEDS ORDERED: Propofol 200 MG/20 ML SDV ONE (08:57)
[2024-12-11] MEDS ORDERED: Lidocaine 2% 5 ML SDV ONE (08:58)
[2024-12-11] MEDS ORDERED: Rocuronium Bromide 50 MG/5 ML Syringe ONE (09:26)
[2024-12-11] MEDS ORDERED: Dexamethasone 4 MG/ML 5 ML MDV ONE (09:32)
[2024-12-11] MEDS ORDERED: Ondansetron 4 MG/2 ML SDV ONE (09:32)
[2024-12-11] MEDS ORDERED: Methylergonovine 0.2 MG/1 ML Amp ONE (10:02)
[2024-12-11] MEDS ORDERED: Ketorolac 30 MG/ML SDV ONE (10:04)
[2024-12-11] MEDS ORDERED: Sugammadex Sodium 200 MG/2 ML VIAL IV ONE (10:06)
== END 2024-12-11 11:52 | disposition home or self-care (01) ==
LOC: MW.SDS 08:02
PROVIDERS: ATTEND Obstetrics & Gynecology
DX: O02.1 Missed abortion (principal)
CPT/HCPCS: 36415; 59820; 86850; 86900; 86901; J0131; J1100; J1885; J2003; J2210; J2250; J2405; J2704; J3010; J7120; 01965; J3490

== ENCOUNTER 2025-03-27 18:13 | Emergency (ER) | payer BC ==
[2025-03-27] MEDS ORDERED: Rabies Immune Globulin/PF (HyperRAB) 300 UNIT/ML 1 ML SDV IM ONE (18:53)
[2025-03-27] MEDS: Diphtheria,Pertussis(Acell),Tetanus Vaccine 0.5 ML Syringe IM ONE (19:03)
[2025-03-27] MEDS: Rabies Immune Globulin/PF (HyperRAB) 300 UNIT/ML 5 ML SDV IM ONE (20:14)
[2025-03-27] MEDS: Rabies Vaccine (Avian) 2.5 Unit Inj Kit IM ONE (20:33)
[2025-03-27] MEDS: Amoxicillin/Clavulanate K 875-125 MG Tab PO ONE (20:35)
[2025-03-27] MEDS: Bacitracin Oint 1 GM U/D Packet TOP ONE (20:47)
== END 2025-03-27 20:51 | disposition home or self-care (01) ==
LOC: MW.ED 18:13
DX: S81.851A Open bite, right lower leg, initial encounter (principal); F17.200 Nicotine dependence, unspecified, uncomplicated; Z91.013 Allergy to seafood; Z79.899 Other long term (current) drug therapy; W54.0XXA Bitten by dog, initial encounter; Z23 Encounter for immunization
CPT/HCPCS: 90375; 90471; 90472; 90675; 90715; 96372; 99283; A9270